=== PATIENT | male | born 1940 | race Caucasian/White ===

== ENCOUNTER 2018-07-16 13:27 | Inpatient (IN) | payer MEDICARE ==
[~2018-07-16] VITALS: Ht 180.3 cm; Wt 120.2 kg
--- NOTE | ~2018-07-16 | DS ---
[facility] [address], [place] [address] Draft ADMISSION DATE: 07/23/2018 DISCHARGE DATE: 07/25/2018 FINAL DIAGNOSES: At the time of discharge: 1. End-stage osteoarthritis, right knee. 2. Right total knee arthroplasty. HISTORY OF PRESENT ILLNESS: The patient is a 77-year-old, white male, with end-stage osteoarthritis of the right knee. He no longer gets any relief from any conservative treatments and would like to have the knee replaced. He is status post successful left total knee replacement about 10 years ago. HOSPITAL COURSE: The patient was taken to Day Surgery on the 23 of July and after being evaluated by the Anesthesia Service, was taken to the operating room, where he underwent an uneventful right total knee using the Attune posterior stabilized system with a fixed bearing poly. Postoperatively, he has done remarkably well. He does have a history of BPH and he did need to be catheterized the 1st night and his Flomax restarted, but subsequent to that, he has had no difficulties whatsoever. Today, he has passed all the physical therapy goals. His incision is clean and dry. His laboratory parameters are unremarkable. We are going to discharge him home using Oxy IR for pain alternating with tramadol for pain. We are going to keep him on Xarelto 10 mg once a day for DVT prophylaxis. We will have him continue with outpatient physical therapy starting out at home and transitioning to therapy at the therapy facility once he is able to get around well enough. We will ask him to follow up with us in about 4 weeks. MD ADALGISA Norton/ANALI /[id number] PATIENT NAME: SANCHEZ REGALADO DISCHARGE SUMMARY DATE OF : 40 REPORT #: [id number] PHYSICIAN: CAROLINA FLANNERY MD PCP: HANDY VALENCIA MD REPORT IS CONFIDENTIAL AND NOT TO BE RELEASED WITHOUT AUTHORIZATION [address] [address] Draft Copies: ~ PATIENT NAME: SANCHEZ REGALADO DISCHARGE SUMMARY DATE OF : 40 REPORT #: [id number] PHYSICIAN: CAROLINA FLANNERY MD PCP: HANDY VALENCIA MD REPORT IS CONFIDENTIAL AND NOT TO BE RELEASED WITHOUT AUTHORIZATION
[2018-07-16] MEDS ORDERED: LISINOPRIL40 MG PO (14:01)
[2018-07-16] MEDS ORDERED: HYDROCHLOROTH12.5 MG PO (14:01)
[2018-07-16] MEDS ORDERED: OMEPRAZOLE20 MG PO (14:02)
[2018-07-16] MEDS ORDERED: SIMVASTATIN20 MG PO (14:02)
[2018-07-16] MEDS ORDERED: ASPIR-LOW81 MG PO (14:03)
[2018-07-16] MEDS ORDERED: FLOMAX0.4 MG PO (14:03)
[2018-07-16] MEDS ORDERED: SYMBICORT 16010.2 GM INH (14:04)
[2018-07-16] MEDS ORDERED: PROAIR RESPICL90 MCG INH (14:05)
--- NOTE | 2018-07-16 14:45 | NUR ---
PATIENT HERE TODAY FOR PREADMISSION APPOINTMENT. HE IS SCHEDULED TO HAVE A RIGHT TOTAL KNEE REPLACEMENT ON 07/23/18. HE CURRENTLY LIVES IN [place]ONE. THERE IS ONE STEP INTO HIS HOME AND NO STEPS INSIDE THE HOME. HIS SON MISAEL OR FRIEND CONSUELO WILL BE HERE TO TRANSPORT HIM HOME. HE WOULD LIKE PHYSICAL THERAPY SET UP IN [place] AT [facility] BECAUSE HE CAN TAKE THE TRANSPORT VAN TO AND FROM. HE WILL BE ATTENDING A PREOP PHYSICAL THERAPY APPOINTMENT TODAY WITH [facility] WHEN WE ARE DONE WITH THIS APPOINTMENT. HE REPORTS HAVING A FRONT WHEELED WALKER, LIFT CHAIR AT HOME. HE HAS A TUB/SHOWER AT HOME AND DOES NOT HAVE A SEAT OR CHAIR. HE DID VOICE CONCERN REGARDING HAVING NO ONE AT HOME TO STAY WITH HIM AND ASKED ABOUT HAVING A CAREGIVER COME INTO THE HOME. THIS INFORMATION WILL BE SENT TO DR FLANNERY'S OFFICE AND CASE MANAGEMENT FOR FURTHER FOLLOW UP.
--- NOTE | 2018-07-23 09:04 | NUR ---
CHG ORAL RINSE AND NASAL SWAB COMPLETE.
--- NOTE | 2018-07-23 12:10 | NUR ---
07/23/18 1210 [address] 1148 PT ARRIVED IN PACU WIDE AWAKE WITH NO C/O'S. SPINAL AT L-1. ICE PLACED ON R KNEE PER DR ORDERS. 1200 R KNEE XRAY DONE. 1210 TALKING TO STAFF WITH NO C/O'S.
--- NOTE | 2018-07-23 12:30 | NUR ---
PT ARRIVED AT THIS TIME TO ROOMO 109, BEDSIDE REPORT FROM NICKIE SHERIFF PACU. PT HAS NO NAUSEA OR PAIN AT THIS TIME, HE IS ALERT AND ORIENTED
--- NOTE | 2018-07-23 13:48 | NUR ---
PT SITTING UP IN BED WATCHING TV. VS OBTAINED. GIVEN FRESH ICE WATER PER REQUEST. RIGHT KNEE DRESSING CDI. PT DENIES PAIN OR OTHER CONCERNS. CALL LIGHT WITHIN REACH.
--- NOTE | 2018-07-23 14:23 | NUR ---
PT SITTING UP IN BED TOLERATING A REGULAR HEART HEALTHY DIET, HE REPORTS NO PAIN, DRESSING IS CLEAN AND DRY. THREE NEW ICE PACKS PLACED AT THIS TIME.
--- NOTE | 2018-07-23 16:08 | NUR ---
PT BLADDER SCANNED FOR >394ML, PT REPORTS NO URGE TO VOID. HE HAS BEEN UP WITH PHYSICAL THERAPY WAS UNABLE TO VOID. WILL NOTIFY
--- NOTE | 2018-07-23 16:13 | NUR ---
CALLED TO GIVE UPDATE AND REPORT THAT PT HAS NOT BEEN ABLE TO VOID AND BLADDER SCANNED FOR GREATER THAN 394ML WITH NOP URGE TO VOID. SAID TO PLACE ANGEL TO BE REMOVED IN AM FOR VOIDING TRIAL.
--- NOTE | 2018-07-23 17:14 | NUR ---
PT ARRIVED FROM PACU AT 1230, HE HAS BEEN UP WITH PHYSICAL THERAPY WAS UNABLE TO VOID ANGEL PLACED FOR URINARY RETENTION AFTER BLADDER SCANNED FOR >394, 450ML OUT WITH ANGEL PLACEMENT BY NELIA SHERIFF CHARGE NURSE. PT IS TOLERATING REGULAR HEART HEALTHY DIET NO NAUSEA, HE HAS NOT REPORTED ANY PAIN OF YET. CMS INTACT. DRESSING HAS ICE PACKS X3, HIS DRESSING IS CDI.
--- NOTE | 2018-07-23 17:53 | NUR ---
PATIENT REPORTS WOULD LIKE TO HAVE PHYSICAL THERAPY SET UP WITH [facility], AND ANY HOME HEALTH SERVICES WITH THEM WELL. HAS OWN WALKER, AND DENIES ANY OTHER NEEDS AT HOME. SPOKE OF A FEW NEIGHBORS THAT COULD HELP WITH MINOR NEEDS IF NEEDED.
--- NOTE | 2018-07-23 18:42 | NUR ---
PT REPORTS NO PAIN AT THIS TIME
--- NOTE | 2018-07-23 19:30 | NUR ---
SHIFT REPORT RECEIVED AT BEDSIDE. PATIENT DENIES PAIN. DRESSING ON RIGHT KNEE C/D/I. PATIENT DENIES NEEDS. CALL LIGHT IN REACH.
--- NOTE | 2018-07-23 19:44 | NUR ---
PATIENT IN BED, RT IN ROOM. CALL LIGHT IN REACH. NO FURTHER NEEDS AT THIS TIME.
--- NOTE | 2018-07-23 19:57 | NUR ---
PATIENT IS DONE ON HIS BREATHING TREATMENT. PER RT TURN IT OFF. DONE.
--- NOTE | 2018-07-23 20:36 | NUR ---
EVENING MEDS GIVEN PER ORDER. PATIENT DENIES PAIN. CMS INTACT. MEPILEX, CAST PADDING AND EMI WRAP IN PLACE ON RIGHT KNEE, NO DRAINAGE NOTED. SCDS AND HEEL PROTECTORS IN PLACE. ANGEL DRAINING FREELY. IV FLUIDS PER ORDER. PATIENT TOLERATING ORAL FLUIDS AND DINNER. NO NAUSEA. SCIENCE EDUCATION PROFESSOR IN ROOM FOR PM CARE.
--- NOTE | 2018-07-24 00:05 | NUR ---
PATIENT REPORTS INCREASED FEELING IN HIS RIGHT KNEE. STATES IT IS A "BURNING AND ACHING". PRN PAIN MEDS PROVIDED WITH SCHEDULED PAIN MEDS. PATIENT ASSISTED TO REPOSITION. DENIES FURTHER NEEDS. CALL LIGHT IN REACH.
--- NOTE | 2018-07-24 02:30 | NUR ---
DONOR RECRUITER IN ROOM FOR VS. SCHEDULED MEDS PROVIDED. PATIENT DENIES PAIN AT THIS TIME. CMS INTACT. DRESSING CDI. ANGEL DRAINING ADEQUATE AMOUNT OF URINE.
--- NOTE | 2018-07-24 05:45 | NUR ---
ANGEL REMOVED PER ORDER. PATIENT TOLERATED WELL. PATIENT UP TO THE RECLINER, 1PA W/FWW. PAIN RATED 5/10 AFTER TRANSFER, PRN OXY X1 PROVIDED. PATIENT HAVING A COUGHING FIT AND PRODUCING LARGE AMOUNTS OF PHLEM. PATIENT STATES THIS IS NORMAL FOR HIM. WATER PROVIDED. CALL LIGHT IN REACH.
--- NOTE | 2018-07-24 06:08 | NUR ---
PATIENT RESTING EASILY IN RECLINER. DENIES ANY NEEDS. REQUEST BREAKFAST BE HELD UNTIL CLOSER TO 9AM PER HIS NORMAL ROUTINE. INFORMATIN PASSED ON TO KITCHEN.
--- NOTE | 2018-07-24 06:09 | NUR ---
PATIENT ABLE TO REST MOST OF THIS SHIFT. PRN PAIN MEDS X2. CMS INTACT ON RIGHT LEG. DRESSING SHOWS NO DRAINAGE. PATIENT UP WITH 1PA W/FWW. ANGEL DC AT 0545, URINE OUTPUT QS OVERNIGHT. IV SL. TOLERATING DIET. SCDS AND HEEL PROTECTORS WHILE IN BED.
--- NOTE | 2018-07-24 07:21 | NUR ---
Pt awake, alert and oriented x3. Pt reports pain is tolerable at this time. Pt denies needs. Personal supplies and call light within reach. No needs at this time. Call light within reach.
--- NOTE | 2018-07-24 08:39 | NUR ---
MET WITH PT BEFORE SURGERY-HE IS ALERT, ORIENTED AND SUPPORTED BY A FRIEND. PT MENTIONED THAT HE HAS THE OTHER KNEE REPLACED AND IS HAPPY WITH IT AND IS LOOKING FORWARD TO SIMILIAR WITH THIS KNEE REPLACEMENT. PT SEEMED PREPARED, REQUESTED PRAYER. WILL FOLLOW NEEDED
--- NOTE | 2018-07-24 08:49 | OR ---
[facility] [address], [place] [address] Signed DATE OF OPERATION: 07/23/2018 SURGEON: Carolnia Flannery MD PREOPERATIVE DIAGNOSIS: End-stage osteoarthritis, right knee. PROCEDURE PERFORMED: Right total knee arthroplasty. ANESTHESIA: Spinal with sedation. SPECIMENS AND COMPLICATIONS: There were no specimens or complications. TOURNIQUET TIME: 90 minutes. IMPLANTS: An Attune size 7 PS femur, a size 6 tibial tray with an 8 mm all-poly insert, and a 38 mm all-poly patella. There were no intraoperative complications. Counts were correct. WHAT WAS DONE: The patient was taken to the operating room. After anesthesia was induced and the patient sedated, right lower extremity was positioned, prepped and draped in a routine sterile fashion. A straight anterior approach was made to the knee through skin and subcutaneous tissue. A small medial flap was created and an anteromedial arthrotomy performed. The patella was turned on edge and about 10 mm were trimmed off the posterior aspect and then drill holes were made for 38 mm all-poly patella. The patella was then slid into the lateral recess and the knee was flexed. Using the Proactive Comfort navigation system, we digitized the distal femur and then resected the distal femur in neutral varus-valgus with 3 degrees of flexion and taking about 11 mm off the high side on the lateral side. We removed the wafers. We then transitioned the navigation system of the proximal tibia and following the navigation guide, we digitized the proximal tibia and then resected it at about 5 mm off the medial side in neutral varus-valgus and in 3 degrees of posterior slope per the Attune surgical protocol. We then removed the tibial wafers along with remnants of the medial and lateral meniscus, ACL and PCL. We placed the femoral sizing jig on the distal femur. It sized to a size 7. We placed the size 7 four-in-one cutting block on the distal femur and resected the anterior, Electronically Signed By: CAROLINA FLANNERY MD 07/24/18 0849 PATIENT NAME: SANCHEZ REGALADO OPERATIVE REPORT DATE OF : 40 REPORT #: [id number] PHYSICIAN: CAROLINA FLANNERY MD PCP: HANDY VALENCIA MD REPORT IS CONFIDENTIAL AND NOT TO BE RELEASED WITHOUT AUTHORIZATION [facility] [address], [place] [address] Signed posterior, and the chamfer cuts. The bony fragments were then removed and the notch cutting block was placed on the distal femur and the notch was cut out. The femoral trial was then placed on the distal femur. Holes were drilled for the lugs. We then placed a size 7 tibial tray with a 6 poly on the tibia and reduced the knee. The knee had excellent extension, stable to varus and valgus stress. However, there appeared to be a little bit of medial overhang. We therefore downsized the tibial tray to a size #6 and had excellent bony coverage. We then used the drill and rasp to prepare the proximal tibia. The knee was copiously irrigated with jet lavage and meticulously dried. We then cemented the final components in place. We then retrialed the knee and found we could actually put in an 8 mm poly and still have full extension with excellent balance. We therefore snap-fit the 8 mm poly into the knee and copiously irrigated the knee. The knee was closed in a standard fashion. Sterile dressings applied. The patient was awakened, taken to recovery room where he arrived in stable condition. Counts were correct and antibiotic protocols were followed. Carolina Flannery MD WFB/MODL /[id number] Copies: ~ Electronically Signed By: CAROLINA FLANNERY MD 07/24/18 0849 PATIENT NAME: SANCHEZ REGALADO OPERATIVE REPORT DATE OF : 40 REPORT #: [id number] PHYSICIAN: CAROLINA FLANNERY MD PCP: HANDY VALENCIA MD REPORT IS CONFIDENTIAL AND NOT TO BE RELEASED WITHOUT AUTHORIZATION
--- NOTE | 2018-07-24 10:33 | NUR ---
PATIENT IS WITH PHYSICAL THERAPY. WATER REFRESHED. CALL LIGHT IN REACH. NO FURTHER NEEDS AT THIS TIME.
--- NOTE | 2018-07-24 12:18 | NUR ---
Admin oxycodone 10mg po for reports of 6/10 right knee pain. Pt denies needs at this time. Personal supplies and call light within reach.
--- NOTE | 2018-07-24 14:19 | NUR ---
ADMIN DILAUDID 4MG PO FOR REPORTS OF 7/10 RIGHT KNEE PAIN.
--- NOTE | 2018-07-24 18:09 | NUR ---
ADMIN OXYCODONE 10MG PO FOR REPORTS OF 4/10 RIGHT KNEE PAIN.
--- NOTE | 2018-07-24 20:03 | NUR ---
PATIENT SITTING UP WATCHING BASEBALL IN BEDSIDE ARMCHAIR. PATIENT DENIES PAIN . WATER GLASS IS FULL AND YANE LIGHT IN REACH. JUST FINISHED NEB TREATMENT. PATIENT HAD NO OTHER NEDS AT THIS TIME.
--- NOTE | 2018-07-24 20:16 | NUR ---
UP TO BR, VOIDED, CLEAR YELLOW URINE, BACK TO BED, SB ASSIST, NO C/O CP OR SOB, TOLERATED WELL. tELE#6 SR, TACHY AT TIMES. O2 2LNC, BACK ON SHE DESATTEDT O 84 ON RETURN TO BED WALKED TO BR W/O O2. O2 BACK ON. SATS UP TO 97% INMEDIATELY. LUNGS VERY COARSE T/O. MOIST, NON PRODUCTIVE COUGH.. COOP WITH PROCEDURE AND ASSESSMENT. RT IN ROOM, EXPLAINED NEBS TO PT. WAITING FOR FAMILY TO BRING HOME CPAP.
--- NOTE | 2018-07-24 22:00 | NUR ---
PATIENT IN BED WATCHING TV, NO NEEDS AT THIS TIME.
--- NOTE | 2018-07-24 23:08 | NUR ---
PATIENT RESTING QUIETLY, EYES CLOSED, RESPIRATIONS REGULAR AND EVEN AT 18, SEMI-FOWLERS POSITION.
--- NOTE | 2018-07-25 00:30 | NUR ---
CALL LIGHT ANSWERED, PT C/O 06/05 PAIN IN RIGHT KNEE. PRN AND SCHEDULED PAIN MEDICATION ADMINISTERED. PT DENIES ADDITIONAL REQUESTS AT THIS TIME. CALL LIGHT IN REACH.
--- NOTE | 2018-07-25 02:40 | NUR ---
PATIENT AWAKE IN BED WATCHING TV. 04/07 RT KNEE PAIN. PATIENT DOING WELL AND SEEMS TO BE IN GOOD SPIRITS. CALL LIGHT IN REACH, NO OTHER NEEDS AT THIS TIME.
--- NOTE | 2018-07-25 05:17 | NUR ---
PATIENT RESTED WELL UNTIL ABOUT 0045 WHEN HE STARTED HAVING INCREASED LEGG PAIN AND WAS GIVEN 10MG PO OXYCODONE BY THE CHARGE NURSE. HE THEN WENT BACK TO SLEEP UNTIL ABOUT 0230 WHEN HE WOKE UP AND STTARTED WATCHING TV IN BED. PAIN HAS BEEN CONTROLLED WITH REGULARLY SCHEDULED MEDS. PATIENT'S RT KNEE DRESSING IS CLEAN DRY AND INTACT. AND IS CURRENTLY TALKING WITH KAY.
--- NOTE | 2018-07-25 05:38 | NUR ---
PATIENT JUST CALLED AND ASKED FOR PAIN MEDICATION FOR RT KNEE PAIN 06/05. 10MG OXYCODONE PO GIVEN ALONG WITH SHEDULED TORADOL.
--- NOTE | 2018-07-25 07:19 | NUR ---
PT CALLED WHEN HE WAS DONE IN THE BATHROOM. BRUSHED HIS TEETH AND WASHED HIS FACE. UP TO CHAIR WITH TWO NEW ICE BAGS ON HIS KNEE. CALL LIGHT IN PLACE
--- NOTE | 2018-07-25 08:10 | NUR ---
PT SITTING IN CHAIR-ALERT AND ORIENTED. HE SEEMS PLEASED WITH PROGRESS THUS FAR. STAIRS WENT WELL HE FELT DURING P.T. HAD GOOD VISIT, EXTENDED A BLESSING AND WILL CONTINUE TO FOLLOW NEEDED
--- NOTE | 2018-07-25 08:49 | NUR ---
PT SITTING UP IN CHAIR AND IS UP WITH PT AT THIS TIME. PT DENIES NEEDS/CONCERNS. CALL LIGHT AND H20 AT BEDSIDE.
--- NOTE | 2018-07-25 09:16 | NUR ---
PT RESTING RECLINED IN CHAIR. ASSESSMENT COMPLETED. PT DENIES NEEDS/CONCERNS. CALL LIGHT AND H20 IN REACH.
--- NOTE | 2018-07-25 11:00 | NUR ---
PT RESTING RECLINED IN RECLINER WATCHING TV. PT STATES PAIN IS NOW TOLERABLE AND THAT HE'S COMFORTABLE. CALL LIGHT AND H2O IN REACH. PT STATES "I'M JUST WAITING TO FIND OUT WHEN I WILL BE DISCHARGED SO I CAN CALL MY RIDE AND LET THEM KNOW WHEN THEY NEED TO BE HERE". PT ASSURED THAT HE WILL BE GIVEN PLENTY OF NOTICE SO HIS TRANSPORTATION HAS TIME TO COME PICK HIM UP. PT DENIES FURTHER NEEDS/CONCERNS.
--- NOTE | 2018-07-25 12:13 | NUR ---
PT SITTING UP IN CHAIR WATCHING TV. PT INQUIRES ABOUT HIS DISCHARGE TIME. PT INFORMED THAT DR FLANNERY IS IN A SURGERY AND WILL LIKELY NOT BE IN TO SEE HIM UNTIL THIS AFTERNOON. CALL LIGHT AND H20 IN REACH AND PT DENIES FURTHER NEEDS/CONCERNS.
--- NOTE | 2018-07-25 13:10 | NUR ---
PT SITTING IN CHAIR, PATIENTLY WAITING FOR DR FLANNERY TO COME AND ORDER DC. PT MENTIONED THAT HIS R KNEE WAS STIFF AND SORE THIS AM, BUT AFTER P.T. WALKING AND THE EXERCISES IT FELT MUCH BETTER. HE THANKED ME FOR COMING IN, EXTENDED A BLESSING AND WILL FOLLOW NEEDED
[2018-07-25] MEDS ORDERED: TYLENOL325 MG PO (13:41)
[2018-07-25] MEDS ORDERED: XARELTO10 MG PO (13:41)
[2018-07-25] MEDS ORDERED: OXYCODONE HCL10 MG PO (13:42)
--- NOTE | 2018-07-26 07:20 | NUR ---
FAXED CHART NOTES TO [facility] INCLUDING FACE SHEET, ORDER, H AND P, OP NOTE, PROG NOTES, DC SUMMARY, PT EVAL AND NOTES. RECIEVED FAX CONFIRMATION.
== END 2018-07-25 14:25 | disposition home or self-care (01) | DRG 470 ==
LOC: MS 07-23 06:55 → DSVR 07-23 06:55 → MS 07-23 09:15
PROVIDERS: ADMIT Orthopaedic Surgery
PROC: 8E0YXBZ Computer Assisted Procedure of Lower Extremity (ICD-10-PCS; 2018-07-23)
PROC: 0SRC0J9 Replacement of Right Knee Joint with Synthetic Substitute, Cemented, Open Approach (ICD-10-PCS; principal; 2018-07-23 09:15)
DX: M17.11 Unilateral primary osteoarthritis, right knee (principal); N40.0 Benign prostatic hyperplasia without lower urinary tract symptoms; I10 Essential (primary) hypertension; E78.00 Pure hypercholesterolemia, unspecified; J43.9 Emphysema, unspecified; K22.70 Barrett's esophagus without dysplasia; I25.2 Old myocardial infarction; Z77.090 Contact with and (suspected) exposure to asbestos; Z87.891 Personal history of nicotine dependence; Z88.8 Allergy status to other drugs, medicaments and biological substances; Z96.652 Presence of left artificial knee joint; Z79.82 Long term (current) use of aspirin; Z79.51 Long term (current) use of inhaled steroids; Z79.899 Other long term (current) drug therapy
CPT/HCPCS: 01402; 36415; 73560; 80048; 85025; 94640; 94762; 97110; 97116; 97162; C1713; C1776; J0690; J1885; J2250; J2274; J2405; J2704; J3010; J7120